=== PATIENT | female | born 1975 | race Caucasian/White ===

== ENCOUNTER → 2018-08-15 | Outpatient (REF) | payer OTHER, SELFPAY ==
--- NOTE | 2018-08-15 17:03 | REP ---
BILATERAL MAMMOGRAM WITH DIAGNOSTIC MAMMOGRAM LEFT BREAST AND LEFT BREAST ULTRASOUND: HISTORY: Skin and nipple retraction left breast medially. MLO and CC views of both breasts are performed with 3D tomosynthesis. Moderate fibroglandular tissue is seen bilaterally. There is an area of architectural distortion with what appear to be two adjacent spiculated masses in the medial aspect of the left breast. There is associated retraction of the skin of the medial left breast and the nipple appears slightly retroverted. Real-time sonographic evaluation of the medical aspect of the left breast shows two adjacent irregular hypoechoic masses at the 8 to 9 o'clock position, 3-4 cm from the nipple. Both the views are taller than wide with distal shadowing. These measure 2.5 x 2.2 x 1.5 cm and 2.0 x 1.7 x 1.9 cm. These are highly suspicious. IMPRESSION: ACR 5- findings compatible with cancer. In the posterior medial left breast there is an area of architectural distortion approximately 5 x 2 cm with what appear to be two adjacent spiculated nodules on the tomographic images. This is confirmed by ultrasound. The two spiculated nodules by mammography have a similar appearance by ultrasound. Findings are compatible with cancer. Biopsy may be performed with ultrasound guidance, with postprocedural mammography to confirm clip placement. BIRADS 5: BI-RADS/ACR category 5 mammogram. Highly Suggestive of Malignancy - appropriate action should be taken. This mammogram was interpreted with the aid of an FDA-approved computer-aided detection system. The patient states she had a clinical breast exam in 07/2018. The patient letter being requested is M4. Electronically Signed by Keshawn Leo MD 08/16/2018 11:41 A
== END ==
LOC: M RAD 11:35 → EDSTATUS 13:00
PROVIDERS: ATTEND Nurse Practitioner Family
DX: N64.53 Retraction of nipple (principal); N63.20 Unspecified lump in the left breast, unspecified quadrant

== ENCOUNTER → 2018-10-30 | Outpatient (REF) | payer MEDICAID, OTHER ==
[~2018-10-30] MED LIST: ADVI100T PO; BUPIVACAINE HCL 0.5% 10 ML VIAL As Ordered ONE; CALCTAB7 PO; CYMB60CA3 PO; D 101000 PO; DULO1CAP4 PO; GABA-1171 PO; LIDOCAINE 2% MDV 20 ML VIAL As Ordered ONE; MIDAZOLAM INJ 2 MG/2 ML VIAL (J2250) As Ordered ONE; MORP-69 PO; NEUR300C PO; OXYC-517 PO; PREG50CA PO; SENN1TAB8 PO; TAMO20TA8 PO; VENL37.598 PO; VENL75CA47 PO; XANA0.25 PO; XARE10TA PO; ceFAZolin 1GM INJ (J0690 PER 500MG) As Ordered ONE; fentaNYL 100 MCG/2 ML INJECTION (J3010) As Ordered ONE
--- NOTE | 2018-10-31 11:51 | ROOPDOC ---
[facility] Report Of Operation Report of Operation DATE OF PROCEDURE: 10/30/2018 PREOPERATIVE DIAGNOSIS: Breast cancer requiring access for chemotherapy. POSTOPERATIVE DIAGNOSIS: Breast cancer requiring access for chemotherapy. PROCEDURE: Ultrasound guided right internal jugular vein cannulation. Fluoroscopic guided right internal jugular vein tunneled central venous catheter with subcutaneous port placement with placement of a power injectable [employer] [place] Power Port with 23 centimeter length catheter. SURGEON: Dr. Camila Tabares M.D. SOURCING ASSISTANT: Louisa Holden ANESTHESIA: Local with 30 mL of 2% lidocaine mixed with 0.5% Marcaine. ANTIBIOTICS: Ancef 2 g FLUOROSCOPY TIME: 0.1 minutes. CONTRAST: None. ESTIMATED BLOOD LOSS: 15 mL. IV FLUID: 100 mL. COMPLICATIONS: None. DRAINS: None. SPECIMENS: None. IMPLANTS: Right internal jugular vein tunneled central venous catheter with subcutaneous port placement using a [employer] [place] Power Port which is power injectable. INDICATION: Patient is a 43-year-old female with breast cancer who has undergone bilateral mastectomy and who requires central venous access for chemotherapy instillation. Patient will undergo a right tunneled central venous catheter placement with subcutaneous port. Procedure was described and explained to the patient in detail including drawing of pictures showing the procedure and anatomy associated with insertion of the tunneled central venous catheter was subcutaneous port. Risks, benefits, and alternative treatment options were discussed with the patient. Alternative treatment options included, but were not limited to, no intervention. Benefits included, but were not limited to, access for chemotherapy infusion centrally, avoiding recurrent venous cannulations , IV placements and sclerosis of peripheral veins. Risks included, but were not limited to, infection, bleeding, pneumothorax, hemothorax, possible need for further open surgical intervention, renal failure requiring hemodialysis, failure of the tunneled central venous catheter with subcutaneous port to function requiring evaluation, revision and/or replacement, adverse and/or allergic reaction to the sedation medications and/or local anesthetics, anesthetic and sedation complication, possible need for transfusion of blood products, allergic reaction and/or complication from the prepping and draping materials, bruising, scarring, cerebrovascular accident, myocardial infarction, pulmonary embolus, deep venous thrombosis, poor satisfaction, poor results, poor outcome, loss of limb and loss of life. Risks of not performing the port insertion included but were not limited to inability to gain access for chemotherapy, inability to gain access for blood draws and laboratory evaluation, sclerosis and thrombophlebitis of peripheral veins and pain associated with continued peripheral cannulations. Patient's questions were answered. Patient voices understanding of these risks, benefits, and alternative treatment options. Patient voices acceptance of the risks associated with placement of a central venous tunneled catheter with subcutaneous port placement and consents to proceed with tunneled central venous catheter with subcutaneous port placement. No guarantees or promises were made to the pa tient regarding the results or outcome of the procedure. DESCRIPTION OF PROCEDURE: Patient was taken to the angiography suite, placed supine on the angiography room table, and prepped and draped in a standard surgical fashion. A time-out was conducted by myself and the team members involved in the procedure, confirming the correct procedure, patient, and laterality. Ultrasound was then used to evaluate the right internal jugular vein, which was noted to be easily compressible, widely patent, and free of thrombus. Ultrasound was then used to guide cannulation of the right internal jugular vein with a micropuncture needle with real-time concurrent visualization of the entry of the needle into the right internal jugular vein with a hardcopy image preserved. The skin overlying the right internal jugular vein was anesthetized with 2% lidocaine prior to cannulation. Once the right internal jugular vein was cannulated, the micropuncture wire was advanced through the micropuncture needle, which was up-sized to a micropuncture sheath. A J wire was advanced through the micropuncture sheath. The right internal jugular vein was then dilated under fluoroscopic guidance, and a #8-Honduran introducer sheath was positioned through the right internal jugular vein into the superior vena cava. The wire was removed, and the #8-Honduran single lumen catheter, which had been tunneled from a puncture wound in the right chest and brought out at the puncture wound at the right internal jugular vein entry site, was advanced through the introducer sheath under fluoroscopic guidance. The introducer sheath was then removed, and the catheter was positioned with the tip in the superior vena cava/right atrial junction under fluoroscopic guidance. The catheter was cut to a length of 23 cm and attached to the port. A pocket was created in the right chest after anesthetizing the overlying tissue with 2% lidocaine. The port was placed in the pocket and cannulated using an access needle. The port was noted to aspirate and flush easily and then was flushed with heparinized saline. The incision in the chest was closed using # 4-0 Monocryl suture in inverted interrupted fashion. The puncture wound in the right neck was closed using a #4-0 Monocryl in inverted interrupted fashion. Steri-Strips and dressings were applied. Patient tolerated the procedure well. All instrument, sponge, and needle counts were correct at the end of the case. There were no complications. Dr. Tabares was present for and directed the entire case. Patient was transferred to the recovery area and subsequently discharged in stable condition. The tunneled central venous catheter with subcutaneous port is stable for use for access. RADIOLOGIC SUPERVISION AND INTERPRETATION: The ultrasound showed the right internal jugular vein to be easily compressible, widely patent, and free of thrombus. Ultrasound was used to guide cannulation of the right internal jugular vein with real-time concurrent visualization of the entry of the needle into the right internal jugular vein. The right internal jugular vein was then dilated under fluoroscopic guidance with a #8-Honduran introducer sheath placed under fluoroscopic guidance. The 8 [place] single lumen catheter was advanced through the introducer sheath positioned with the tip in the superior vena/right atrial junction using fluoroscopic guidance with final fluoroscopic image showing the catheter and port to be in good position and good alignment with the tip in the superior vena cava/right atrial junction with no pneumo- or hemothorax noted. The tunneled central venous catheter with subcutaneous port is stable for use. Delvis Tabares MD Oct 31, 2018 11:51
== END ==
LOC: M IRPRO 10:41 → EDSTATUS 12:00
PROVIDERS: ATTEND Internal Medicine Hematology & Oncology
DX: C50.919 Malignant neoplasm of unspecified site of unspecified female breast (principal)
CPT/HCPCS: 36561; 76937; 77001; C1788; C1894; J0690

== ENCOUNTER → 2018-11-06 | Outpatient (REF) | payer MEDICAID, OTHER ==
[~2018-11-06] MED LIST changes: -BUPIVACAINE HCL 0.5% 10 ML VIAL As Ordered ONE; +ISOVUE-300 61% 50ML VIAL (Q9967) As Ordered ONE; -LIDOCAINE 2% MDV 20 ML VIAL As Ordered ONE; -MIDAZOLAM INJ 2 MG/2 ML VIAL (J2250) As Ordered ONE; -ceFAZolin 1GM INJ (J0690 PER 500MG) As Ordered ONE; -fentaNYL 100 MCG/2 ML INJECTION (J3010) As Ordered ONE
--- NOTE | 2018-11-06 11:21 | ROOPDOC ---
Delvis Tabares MD Nov 06, 2018 11:21
--- NOTE | 2018-11-28 08:38 | REPIR ---
DATE OF PROCEDURE: 11/06/2018 ATTENDING SURGEON: Dr. Nakia Tabares ASSISTANTS: Louisa Holden and Kirstie Pichardo. PREOPERATIVE DIAGNOSIS: Breast cancer, right neck lump. POSTOPERATIVE DIAGNOSIS: Breast cancer, right neck lump. PROCEDURE: Right internal jugular vein tunneled central venous catheter with subcutaneous port catheter flow study. DESCRIPTION OF PROCEDURE: The patient was taken to the angiography suite, placed on the angiography room table, and then prepped and draped in a standard surgical fashion. The port was cannulated and a catheter flow study was performed showing no extravasation or abnormality noted. The port was decannulated and a dressing was applied. The patient tolerated the procedure well. All instrument, sponge, and needle counts were correct at the end the culture and sensitivity. There were no complications. Dr. Tabares was present for and directed the entire case. The patient was transferred to the holding area and subsequently discharged in stable condition.
== END ==
LOC: M IRPRO 06:54 → EDSTATUS 07:30
PROVIDERS: ATTEND Surgery Vascular Surgery
DX: C50.919 Malignant neoplasm of unspecified site of unspecified female breast (principal); R22.1 Localized swelling, mass and lump, neck; Z45.2 Encounter for adjustment and management of vascular access device
CPT/HCPCS: 36598; Q9967

== ENCOUNTER 2018-11-14 09:53 | Outpatient (RCR) | payer MEDICAID, OTHER ==
[~2018-11-14 09:53] MED LIST changes: -CALCTAB7 PO; -CYMB60CA3 PO; -D 101000 PO; -GABA-1171 PO; -MORP-69 PO; -OXYC-517 PO; -PREG50CA PO; -SENN1TAB8 PO; -TAMO20TA8 PO; -VENL37.598 PO; -VENL75CA47 PO; -XANA0.25 PO; -XARE10TA PO
[2018-11-21] MEDS ORDERED: DULO1CAP4 PO (10:36)
[2018-11-21] MEDS ORDERED: NEUR300C PO (10:37)
[2018-11-21] MEDS ORDERED: MORP-69 PO (10:38)
[2018-11-21] MEDS ORDERED: OXYC-517 PO (10:40)
[2018-11-21] MEDS ORDERED: PREG50CA PO (10:40)
[2018-11-21] MEDS ORDERED: TAMO20TA8 PO (11:10)
[2019-03-04] MEDS ORDERED: XANA0.25 PO (16:54)
== END 2018-11-18 ==
LOC: M PT 09:53
PROVIDERS: ATTEND Internal Medicine Hematology & Oncology
DX: Z42.1 Encounter for breast reconstruction following mastectomy (principal)

== ENCOUNTER → 2018-11-14 | Outpatient (REF) | payer MEDICAID, OTHER ==
[~2018-11-14] MED LIST changes: -ISOVUE-300 61% 50ML VIAL (Q9967) As Ordered ONE
--- NOTE | 2018-11-15 11:27 | REP ---
PET/CT: HISTORY: Staging breast carcinoma. Status post left mastectomy and left axillary lymph node dissection. Invasive ductal carcinoma. COMPARISONS: Comparison mammography August 15 2018 and sonography August 15, 2018. TECHNIQUE: 60 minutes following the intravenous injection of a 8.48 mCi dose of F-18 FDG, three-dimensional PET scintigraphy is acquired from the skull base to the proximal thighs. Triplanar noncontrast CT scanning is acquired through the same anatomic range for attenuation correction, and image registration with scan parameters optimized to minimize radiation exposure to the patient. PET scintigraphy and CT datasets were fused and displayed on a workstation with multiplanar and projection display capability. PET/CT FINDINGS: The patient is status post bilateral mastectomy and tissue expanders placement bilaterally. There is a rounded focus of mildly hypermetabolic uptake in the left axilla with maximum standard uptake value 3.04. This may be a lymph node. There is some mildly hypermetabolic uptake posterior and lateral to the right augmentation implant with maximum standard uptake value 4.71. These may be related to postoperative inflammation. There is no abnormal pulmonary parenchymal hypermetabolic uptake. No mediastinal or hilar adenopathy is seen. No abnormal hypermetabolic uptake is seen within the abdomen. Unfortunately however, there is fairly widespread metastatic hypermetabolic uptake seen in the skeletal system. Hypermetabolic foci distributed throughout the skeletal system range from 2.74 to 9.17. The larger and more avid of these are associated with discernible areas of lytic bone destruction. The largest and most avid lesion is in the right femur intertrochanteric portion where maximum standard uptake value is 9.17. The lesion measures 4.4 cm in transverse dimension and there is a large area of posterior cortical destruction. There may be some risk of pathologic fracture in the right hip. The next largest lesion is in the left iliac bone where there are multifocal lesions. The more superior portion of the iliac bone has a largest area of mixed lytic and sclerotic involvement. Maximum standard uptake value in the superior acetabular region is 8.34. There is a lesion in the right pedicle at L3. There is a vertebral body lesion at T9. There is an early lesion in C2 and another in C3 in the cervical spine. No pathologic fracture is seen in the spine. No evidence of epidural involvement. There are other metastatic foci in the manubrium and sternum and in several ribs as well as the distal clavicle on the right. IMPRESSION: Fairly widespread skeletal metastatic hypermetabolic uptake. Possible left axillary timothy focus. Right axillary uptake suspected to be postoperative change. Electronically Signed by Anthony Taylor MD 11/15/2018 02:22 P
== END ==
LOC: M PLARAD 12:13 → EDSTATUS 13:00
PROVIDERS: ATTEND Internal Medicine Hematology & Oncology
DX: C50.812 Malignant neoplasm of overlapping sites of left female breast (principal)
CPT/HCPCS: 78815; A9552

== ENCOUNTER → 2018-12-06 | Outpatient (CLI) | payer MEDICAID ==
[~2018-12-06] MED LIST changes: +ISOVUE-370 76% 100ML VIAL (Q9967) As Ordered ONE; +MORP-38 PO; +OXYC-517 PO; +PREG50CA PO; +TAMO20TA8 PO
--- NOTE | 2018-12-06 14:12 | REP ---
CT right femur with IV contrast: History: History of breast carcinoma. Pain in the right femur question mets. Comparison is made with PET/CT study November 14, 2018. CT contrast dose: 100 mL of intravenous Isovue [address] findings: CT imaging confirms the presence of a fairly large area of posterior cortical destruction in the proximal femur on the right involving the intertrochanteric segment of the proximal femur. This radiolucent metastatic lesion measures 4.1 cm in right to left dimension by 3.4 cm anterior to posterior by 5.4 cm cranial to caudal. The anterior cortex is intact. There is a 3.8 cm segment of posterior cortex which is eroded. No pathologic fracture is seen. Given the size of the lesion however, there is certainly a risk of pathologic fracture with this focus. There is another smaller metastasis in the ischium on the right measuring 1.4 cm in diameter. There is a lesion in the right iliac bone measuring 1.4 cm in diameter as well. No distal femoral lesion is seen. No soft tissue mass is observed. No vascular abnormality. Impression: Lytic metastatic lesion in the intertrochanteric femur 4.1 x 5.4 x 3.4 cm in diameter with significant posterior cortical destruction. At risk lesion for pathologic fracture. There are other smaller right pelvic metastatic deposits. No other femoral metastasis is appreciated. Electronically Signed by Anthony Taylor MD 12/06/2018 07:22 P
== END ==
LOC: M RAD 08:42
PROVIDERS: ATTEND Internal Medicine Hematology & Oncology
DX: M79.604 Pain in right leg (principal); Z85.3 Personal history of malignant neoplasm of breast
CPT/HCPCS: 73701; Q9967

== ENCOUNTER → 2019-01-07 | Outpatient (REF) | payer MEDICAID ==
[~2019-01-07] MED LIST changes: -ISOVUE-370 76% 100ML VIAL (Q9967) As Ordered ONE; -MORP-38 PO; +MORP-69 PO
== END ==
LOC: M LAB LCGH 14:52
PROVIDERS: ATTEND Obstetrics & Gynecology
DX: N92.0 Excessive and frequent menstruation with regular cycle (principal)

== ENCOUNTER 2019-01-15 12:45 | Outpatient (RCR) | payer MEDICAID ==
[2019-01-18] MEDS ORDERED: D 101000 PO (10:58)
[2019-01-18] MEDS ORDERED: CYMB60CA3 PO (10:58)
[2019-01-18] MEDS ORDERED: GABA-1171 PO (10:58)
[2019-01-18] MEDS ORDERED: XARE10TA PO (10:58)
[2019-01-18] MEDS ORDERED: SENN1TAB8 PO (10:58)
[2019-01-18] MEDS ORDERED: CALCTAB7 PO (10:58)
== END 2019-01-19 ==
LOC: M PT 12:45
PROVIDERS: ATTEND Nurse Practitioner
DX: Z51.89 Encounter for other specified aftercare (principal); C79.51 Secondary malignant neoplasm of bone; C50.919 Malignant neoplasm of unspecified site of unspecified female breast; Z98.890 Other specified postprocedural states

== ENCOUNTER → 2019-01-25 | Outpatient (CLI) | payer MEDICAID ==
[~2019-01-25] MED LIST changes: +CALCTAB7 PO; +CYMB60CA3 PO; +D 101000 PO; +GABA-1171 PO; +SENN1TAB8 PO; +XARE10TA PO
--- NOTE | 2019-01-27 09:11 | RADONC ---
RADIATION ONCOLOGY NEW PATIENT CONSULTATION DATE: 01/25/2019 CHART NUMBER: [id number] DIAGNOSIS: Left breast cancer. STAGE: IV (T2 pathologic N1aM1(bone metastasis). ICD-10 code: C79.51. ECOG PERFORMANCE STATUS: 0. HISTORY OF PRESENT ILLNESS: The patient is 43 years old and she has been relatively recently been diagnosis as having a left breast cancer. Initially it was thought that she might have two masses in the breast and they were located in the central portion of the breast and possibly in the subareolar area. For the breast cancer the lesions were biopsied and shown to be an infiltrating ductal carcinoma, ER positive DE positive, HER2/shari oncogene not overly expressed. The patient had been experiencing some pain in the right hip and upon workup it was found that she did have multiple metastasis in the pelvis and a precarious metastasis in the proximal right femur with an impending fracture. The patient did undergo a mastectomy with lymph nodes retrieved. A total of 12 lymph nodes that were examined and one was positive for cancer, however, this was not the sentinel lymph node. The tumor was noted to be ER/DE positive, HER2/shari negative and the total maximum size of the breast tumor was 4.7 cm. Her mastectomy was on September 10, 2018. On 12/25/2018 the patient was noted to have an impending pathologic fracture involving the right proximal femur and she underwent a prophylactic stabilization with long gamma nail locked proximally and distally. Prior to the stabilization procedure she underwent an open biopsy with intraoperative frozen sections and indeed the right femur lesion was as anticipated a bone metastasis from her breast primary. The patient has been on tamoxifen to treat her breast cancer and she comes today for evaluation of prophylactic local regional radiotherapy to the right hip and femur to prevent progressive tumor growth in that extremity. PAST MEDICAL HEALTH: She has a history of cancer see history of present illness, low-back pain and a neuromuscular disorder. PAST SURGICAL HISTORY: She had bladder surgery in the past, she has had a bilateral mastectomy see history of present illness. She has had an open biopsy of the right proximal femur revealing the lesion to be consistent with bone metastasis from her breast primary. SOCIAL HISTORY: The patient has never been a smoker and has never used smokeless tobacco. Alcohol history denied. Drug use denied. FAMILY HISTORY OF CANCER: Her father had a history of cancer. Mother no known medical issues. CURRENT MEDICATIONS: Include: - gabapentin 300 mg one by mouth daily - ibuprofen 200-400 mg by mouth three times a day as needed - morphine sulfate 15 mg continuous release twice a day - oxycodone 5 mg by mouth as needed - Lyrica 5 mg by mouth ALLERGIES: No known drug allergies. IMAGING STUDY: Her PET scan was obtained on 11/14/2018 at [facility] and revealed widespread skeletal metastasis with hypermetabolic uptake. She had increased uptake at T9, C2, C3, the right hip, left iliac bone, and of course as stated the proximal right femur. This femur was stabilized as mentioned in the H P and the patient has done well since stabilization. REVIEW OF SYSTEMS: Respiratory: Denies coughing, dyspnea, hemoptysis, hiccups, pleuritic chest pains or wheezing. Psychiatric: Denies delusions, hallucinations, mood swings including depression or euphoria. Neurologic: Denies disorientation, dizziness, gait issues, headaches, insomnia, memory loss, neuropathy, motor dysfunction, paralysis, seizure activity, sensory deficits or stroke. Musculoskeletal: Denies arthritis. She does have pain in her right hip area and in the right femur area which she rates at a 3 to 4, but it is well controlled with her MS Contin and oxycodone for breakthrough pain. She denies significant muscle weakness and she has undergone the appropriate physical therapy. Integumentary: Denies alopecia, blisters, bruising, dry skin, facial burning, nail issues, photosensitivity, pruritus, rashes, urticaria. Hematology lymphatics: Denies easy bruising or lymphadenopathy. Genitourinary: Denies dysuria, frequency, genital masses, hematuria, incontinence, nocturia, renal stone disease, sexual dysfunction, urgency, urine color changes, vaginal discharge or bleeding or vaginal spotting. Gastrointestinal: Denies changes in bowel habits, constipation, diarrhea, heartburn, dyspepsia, hematemesis, hematochezia, hemorrhoids, juan pablo, GI bleeding, nausea, pain, cramping early satiety or vomiting. ENMT: Denies ear pain, epistaxis, esophagitis, hearing issues, dry mouth, oral bleeding otitis, sinusitis, sputum production, stomatitis, taste alterations, or tinnitus. CONSTITUTIONAL: Denies decrease in her appetite. She does note fatigue. Denies fever. She does have some lethargy but denies malaise, night sweats, rigors or recent weight changes. CARDIOVASCULAR: Denies arrhythmia, chest pain, dyspnea, edema, orthopnea, palpitations. BREASTS: She has had a bilateral mastectomy with expanders placed. There is no evidence of local regional recurrence and she has had no significant pain in the chest area. Vitals: Height 69 inches, weight 220.4 pounds, temperature 99, pulse 91, respirations 18, systolic 132, diastolic 95, O2 saturation 98% on room air. HEENT: Normocephalic. EOMs intact. PERRLA. Fundi benign. Lymphatics: No palpable peripheral lymphadenopathy is appreciated. Breasts: Bilateral mastectomy with no evidence of chest wall recurrence. Heart: Regular without murmurs. Lungs: Clear to auscultation and percussion. Abdomen: Without evidence of hepatomegaly, masses, deep abdominal tenderness. Extremities: Without cyanosis, clubbing or significant edema. The patient has a brace on her leg and has had the surgical procedure involving her right femur as stated in the a history of the present illness. There is no significant swelling. Neurologic: Examination grossly physiologic and nonfocal. IMPRESSION: Primary breast cancer stage T2, pathologic N1aM1 (bone metastasis). She has evidence of a fairly large proximal right femur lytic metastasis which has been biopsied and underwent prophylactic femoral stabilization with long gamma nail locked proximally and distally. PLAN OF RADIOTHERAPY: The patient is a candidate for palliative local regional radiotherapy. She will receive 10 fractions utilizing an appropriate MV photon beam. Prior to treatment delivery localization will be accomplished upon our CT simulator and treatment portals will be defined by the use of multiple leaf collimators. The indications, possible side effects of radiotherapy have been explained to the patient in detail. She understands and is willing to proceed as outlined. Thank you for referring this very chelsea lady to us and allowing us the opportunity of participation in her overall management. cc: MD Mena Herron MD Jessica Robinson, KELSEY
== END ==
LOC: M ONCR 10:35
PROVIDERS: ATTEND Radiology Radiation Oncology
DX: C50.012 Malignant neoplasm of nipple and areola, left female breast (principal); C79.51 Secondary malignant neoplasm of bone

== ENCOUNTER → 2019-01-31 | Outpatient (CLI) | payer MEDICAID ==
[~2019-01-31] MED LIST changes: +GASTROGRAFIN SOLUTION 30ML (Q9963) As Ordered ONE; +ISOVUE-370 76% 100ML VIAL (Q9967) As Ordered ONE
--- NOTE | 2019-01-31 14:15 | REP ---
CT CHEST WITH IV CONTRAST: HISTORY: Restaging, breast carcinoma. COMPARISON: PET-CT study, November 14, 2018. CT CONTRAST DOSE: 100 mL of intravenous Isovue-370. CT FINDINGS: Preliminary digital manager hospitality radiograph demonstrates a right-sided Ekwesl-B-Ehcf catheter. There is no evidence of pulmonary nodule or mass lesion. No pleural or pericardial effusion is appreciated. The tissue expanders noted in place on November 14, 2018 have been removed. There are post mastectomy changes bilaterally. No chest wall mass or axillary adenopathy is appreciated. There is irregular sclerosis in the right side of the manubrium at the site of the known skeletal metastasis in the manubrium. This does not appear different than on the November 14, 2018 study. There is callus formation indicating healing fracture involving the anterolateral left 6th and anterior left 3rd ribs. Questionable sclerosis is seen in the anterior left 2nd rib. A 7 mm radiolucent lesion in the right side of the T9 vertebral body. This corresponds with a recent PET activity. No other skeletal abnormalities are seen. IMPRESSION: Bilateral post mastectomy changes. Evidence of skeletal metastatic disease, as above. These are stable or less conspicuous than at the time of the PET-CT study November 14, 2018. Electronically Signed by Anthony Taylor MD 01/31/2019 03:14 P
--- NOTE | 2019-01-31 14:19 | REP ---
CT ABDOMEN AND PELVIS WITH IV AND ORAL CONTRAST: HISTORY: Restaging breast carcinoma. COMPARISON: PET-CT study, November 14, 2018. CT CONTRAST DOSE: 100 mL of intravenous Isovue-[address] FINDINGS: There is diffuse fatty infiltration of the liver. There is a focal area of increased attenuation centrally in the left lobe of the liver measuring 3.3 cm in diameter. This is of uncertain significance. No abnormal uptake is seen on PET-CT, and no lesion is visible on the noncontrast CT study from October 2018. There are areas of fat sparing adjacent to the gallbladder, and this area of increased density in the left lobe could be regional fat sparing. It is difficult to exclude an enhancing metastatic deposit. The adrenals are unchanged. No abnormalities noted in the pancreas or spleen. The gallbladder is unremarkable. The kidneys enhance symmetrically. No retroperitoneal mass is seen. There is no evidence of upper abdominal ascites or pelvic ascites. No uterine or ovarian abnormality is observed. No pelvic adenopathy is seen. The patient is status post IM kinga and femoral neck pinning for the lytic destructive metastasis in the intertrochanteric right femur. There is a 1 cm lytic lesion in the left acetabulum, unchanged. This showed hypermetabolic uptake. There is a second smaller subcentimeter lucency in the iliac bone, unchanged. Mottled lucent and sclerotic changes are noted in the posterior iliac bone on the left, unchanged. There is a tiny lucency in the left side of the first sacral segment. There is a radiolucency more laterally in the right iliac bone, unchanged. Right pedicle L3 lesion is unchanged in size. No new large metastasis is seen in the skeletal system. IMPRESSION: Multifocal skeletal metastatic disease either unchanged or improved in appearance. No new skeletal lesions seen. Fatty infiltration of the liver noted. There is a rounded shape irregular 3.3 cm area of increased attenuation in the left lobe of the liver which could be metastasis versus regional fat sparing. MRI scanning of the liver may be helpful. Electronically Signed by Anthony Taylor MD 01/31/2019 03:14 P
--- NOTE | 2019-01-31 14:51 | REP ---
WHOLE BODY BONE SCAN: Following the intravenous administration of 22 mCi of technetium 99m MDP, patient's whole body is imaged in multiple projections. There are no prior studies for comparison. Multiple foci of increased uptake are seen throughout the spine, pelvic bones, ribs, skull, and shoulder regions in a pattern most compatible with multiple skeletal metastases. A few of the left anterior rib foci represent advanced healing of rib fractures as seen on CT of the chest performed today. There is intense increased uptake in the right manubrium and proximal right femur, consistent with metastatic lesions. There is also a small focus of increased uptake at the left sternoclavicular region. There is a small focus of increased uptake in the proximal left femur. Renal and bladder activity are seen. IMPRESSION: Multiple foci of increased uptake in the axial and appendicular skeleton compatible with fairly widespread skeletal metastases. Electronically Signed by Keshawn Leo MD 01/31/2019 05:01 P
== END ==
LOC: M RAD 10:13
PROVIDERS: ATTEND Internal Medicine Hematology & Oncology
DX: C50.919 Malignant neoplasm of unspecified site of unspecified female breast (principal); C79.51 Secondary malignant neoplasm of bone; K76.0 Fatty (change of) liver, not elsewhere classified; Z90.13 Acquired absence of bilateral breasts and nipples
CPT/HCPCS: 71260; 74177; 78306; A9503; Q9963; Q9967

== ENCOUNTER 2019-02-05 12:45 | Outpatient (RCR) | payer MEDICAID ==
[~2019-02-05 12:45] MED LIST changes: -GASTROGRAFIN SOLUTION 30ML (Q9963) As Ordered ONE; -ISOVUE-370 76% 100ML VIAL (Q9967) As Ordered ONE
[2019-02-18] MEDS ORDERED: VENL37.598 PO ×2 (11:20→11:25)
[2019-02-18] MEDS ORDERED: VENL75CA47 PO (11:25)
== END 2019-02-18 ==
LOC: M PT 12:45
PROVIDERS: ATTEND Nurse Practitioner
DX: Z51.89 Encounter for other specified aftercare (principal); Z98.890 Other specified postprocedural states; M89.9 Disorder of bone, unspecified

== ENCOUNTER → 2019-02-18 | Outpatient (RCR) | payer MEDICAID ==
--- NOTE | 2019-01-30 08:39 | RADONC ---
RADIATION ONCOLOGY SIMULATION NOTE DATE OF SERVICE: 01/29/2019 CHART NUMBER: [id number] DIAGNOSIS: Breast cancer metastatic to right proximal femur status post surgical fixation. SIMULATION NOTE: The patient was simulated to treat with radiotherapy to the area where a fairly large lytic lesion in the right proximal femur was stabilized after being biopsied by Dr. Waite. The patient was first placed in a supine position with her feet first through the simulator. An immobilization device was constructed to secure the patient in the same position each day of treatment. After the fabrication of the immobilization device, 3 mm interval images were captured via the CT simulator. These were will be used for contouring the right femur as per protocol. The entire procedure went well with no untoward side effects. These images now will be contoured appropriately for treatment planning. A total of 10 days are planned for the treatment. I was present during the entire procedure. LOREND
--- NOTE | 2019-02-13 07:39 | RADONC ---
RADIATION ONCOLOGY PROGRESS NOTE DATE: 02/11/2019 CHART #: [id number] Ms. Warren is presently at a dose of 1500 cGy to her right femur and is tolerating treatments quite well at this point with no complaints related to her radiation therapy. REVIEW OF SYSTEMS: The patient's review of systems is positive for some left-sided rib pain. She is asking if we could treat the left-sided ribs. She has no complaints related to her leg. The patient's review of systems is positive for the rib pain as well as some other bone pain, but is otherwise noncontributory. Denies nausea, vomiting, fevers, chills, night sweats, diplopia, headaches, anxiety or depression, anorexia, weight loss, visual disturbances, chest pain, urinary or bowel difficulties, bone pain, or neurological problems. PHYSICAL EXAMINATION: The patient's skin is in good condition with no evidence of radiation change present. There is no moist or dry desquamation. The remainder of her physical exam remains unchanged. Ms. Warren is tolerating treatments quite well and radiation will continue as scheduled. I did talk with the patient about the possibility of palliative radiation therapy to those ribs. We discussed logistics of treatment planning and rib treatments. We can treat the patient to some painful ribs. I did look at the patient's bone scan which does show some uptake there. After the patient left, after I further reviewed the situation, the CT scan does show what looked to be healing fractures of her left ribs. Further questioning of my staff reveals that the patient had told them that the ribs were broken during the time of her surgery. I am sure that there is some metastatic disease involving some of the ribs, but I am not quite sure what components of these fractures is pathologic at this point. Before we actually start treatment of those ribs, I will have a further discussion with this patient and her . Since these rib fractures are healing and even normal rib fractures are quite painful, it may be best to watch these for now and save radiation until absolutely necessary. In the meantime, the leg radiation will continue as scheduled.
[~2019-02-18] MED LIST changes: +VENL37.598 PO; +VENL75CA47 PO
--- NOTE | 2019-02-19 07:13 | RADONC ---
RADIATION ONCOLOGY TREATMENT SUMMARY DATE: 02/18/2019 CHART NUMBER: [id number] DIAGNOSIS: Left breast cancer. STAGE: IV, metastatic. ECOG PERFORMANCE STATUS: 0 TREATMENT SUMMARY: Ms. Duran is a 43-year-old white female with the diagnosis of metastatic left breast cancer who presented to us for consideration of palliative radiation therapy to her right femur. We treated the patient to her right femur for a total dose of 3000 cGy delivered in 10 fractions of 300 cGy each over 13 elapsed days from 02/05/2019 through 02/18/2019. The patient's right femur was treated on the linear accelerator utilizing 3D conformal technique with a 10 MV photon beam. Ms. Duran tolerated her treatments quite well and was able complete therapy as prescribed. I have scheduled the patient to see me again in 1 month for further followup. She will also continue to be followed by her other physicians as well. cc: MD Mena Herron MD Jessica Robinson, KELSEY
== END ==
LOC: M ONCR 01-29 13:38
PROVIDERS: ATTEND Radiology Radiation Oncology
DX: C79.51 Secondary malignant neoplasm of bone (principal)

== ENCOUNTER → 2019-02-22 | Outpatient (CLI) | payer MEDICAID ==
[~2019-02-22] MED LIST changes: +PROHANCE 279.3MG/ML 15ML VIAL (A9576) As Ordered ONE; +PROHANCE 279.3MG/ML 5ML VIAL (A9576) As Ordered ONE; +XANA0.25 PO
--- NOTE | 2019-02-22 15:22 | REP ---
MRI LIVER WITH AND WITHOUT CONTRAST: HISTORY: Breast cancer. COMPARISON: CT 01/31/2019. TECHNIQUE: Multiple sequences obtained in the axial, and coronal planes, prior to and following the intravenous administration of 20 mL ProHance. In the left lobe of the liver there is again noted an area of abnormal signal intensity which has a mass like appearance. This measures approximately 3 cm in diameter. It is predominantly hyperintense on T2 fat sat images with mixed low and high signal on T1 fat sat images. Remainder of the liver parenchyma demonstrates diffuse drop in signal on [id number] images compatible with diffuse fatty infiltration. There are spared areas of parenchyma in the periportal region and adjacent to the gallbladder. Following the intravenous administration of gadolinium the lesion in the left lobe demonstrates heterogeneous arterial phase enhancement with initially nonenhancing central serpiginous areas which demonstrate delayed enhancement. The lesion demonstrates a persistent blush on delayed imaging. No other liver mass is seen. The spleen is unremarkable. A nodule in the left adrenal gland demonstrates a drop in signal in [id number] images consistent with an adrenal adenoma, measuring 1.1 cm in diameter. Right adrenal is unremarkable. Pancreas and kidneys are unremarkable. No adenopathy is seen in the abdomen and there is no evidence of free fluid. There are enhancing lesions in visualized vertebral bodies consistent with metastases. IMPRESSION: Diffuse fatty infiltration of the liver. There is a enhancing lesion in the left lobe of the liver which cannot be definitely characterized. Given the patient's history of metastatic breast cancer a metastatic lesion is a primary diagnostic possibility. Ultrasound guided biopsy could be performed if clinically warranted. Alternatively this could represent focal nodular hyperplasia given the presence of a possible central scar which demonstrates delayed enhancement. Atypical hemangioma would be less likely. Left adrenal adenoma. There are enhancing metastatic lesions in the visualized vertebral bodies. Electronically Signed by Keshawn Leo MD 02/25/2019 04:59 P
== END ==
LOC: M RAD 07:58
PROVIDERS: ATTEND Internal Medicine Hematology & Oncology
DX: R91.1 Solitary pulmonary nodule (principal)
CPT/HCPCS: 74183; A9576

== ENCOUNTER 2019-03-11 12:24 | Emergency (ER) | payer MEDICAID ==
[~2019-03-11 12:24] MED LIST changes: -LIDOCAINE 1% MDV 20ML VIAL As Ordered ONE
[2019-03-11] MEDS ORDERED: LORazepam 2 MG/ML VIAL (J2060) IV STA ×2 (12:30→12:49)
[2019-03-11] MEDS ORDERED: MORPHINE 4 MG/ML 1ML VIAL/SYRINGE (J2270) IV ONE (12:30)
[2019-03-11] MEDS ORDERED: NS 1,000 ML IV SCH (12:30)
[2019-03-11] MEDS ORDERED: HYDROMORPHONE HCL 0.5 MG/ 0.5 ML SYRINGE (J1170 PER 1) As Ordered ONE (12:51)
[2019-03-11] MEDS ORDERED: HYDROmorphone 2 MG TAB PO ONE (13:00)
[2019-03-11 13:02] LABS: HEMATOCRIT 38.6 % (36.0-47.0); HEMOGLOBIN 13.7 g/dl (12.0-15.5); MEAN CORPUSCULAR HEMOGLOBIN 31.4 pg (27.0-33.0); MEAN CORPUSCULAR HGB CONC 35.5 g/dl (32.0-36.5); MEAN CORPUSCULAR VOLUME 88.3 fl (80.0-96.0); PLATELET COUNT, AUTOMATED 281 10^3/uL (150-450); RED BLOOD COUNT 4.37 10^6/uL (4.00-5.40); WHITE BLOOD COUNT 9.5 10^3/uL (4.0-10.0)
[2019-03-11 13:21] LABS: BLOOD UREA NITROGEN 14 MG/DL (7-18); CALCIUM LEVEL 8.8 MG/DL (8.5-10.1); CARBON DIOXIDE LEVEL 24 MEQ/L (21-32); CHLORIDE LEVEL 105 MEQ/L (98-107); CK-MB VALUE MASS < 1.0 NG/ML (<3.6); CPK CREATINE PHOSPHOKINASE 63 U/L (26-192); CREATININE FOR GFR 0.76 MG/DL (0.55-1.30); GLOMERULAR FILTRATION RATE > 60.0 (>58); GLUCOSE, FASTING 168 MG/DL (70-100); MB/CK RELATIVE INDEX 1.59 (< OR =4); POTASSIUM SERUM 3.6 MEQ/L (3.5-5.1); SODIUM LEVEL 139 MEQ/L (136-145); TROPONIN I < 0.02 NG/ML (< 0.10)
--- NOTE | 2019-03-11 13:35 | REP ---
Two-view chest: March 11, 2019. Indication: Chest pain. New comparison: New none. Findings: Right-sided Port-A-Cath is present with the distal tip in the right heart. The lungs are clear. There is no pleural effusion or pneumothorax. Cardiac silhouette is at the upper limits of normal in size. Impression: Clear lungs. Electronically Signed by Shahab España DO 03/11/2019 01:26 P
[2019-03-11 14:14] VITALS: BP 131/85
[2019-03-12] MEDS ORDERED: SODIUM CHLORIDE 0.9% INJ 10 ML SYR IV SCH (09:00)
== END 2019-03-11 14:20 | disposition home or self-care (01) ==
LOC: M ED 12:24
DX: R10.9 Unspecified abdominal pain (principal); F43.0 Acute stress reaction; C50.919 Malignant neoplasm of unspecified site of unspecified female breast; Z95.9 Presence of cardiac and vascular implant and graft, unspecified; Z79.899 Other long term (current) drug therapy; Z79.810 Long term (current) use of selective estrogen receptor modulators (SERMs); Z79.891 Long term (current) use of opiate analgesic
CPT/HCPCS: 71046; 80048; 82550; 82553; 85027; 96374; 96375; 96376; 99284; J2060; J2270

== ENCOUNTER → 2019-03-11 | Outpatient (CLI) | payer MEDICAID ==
[~2019-03-11] MED LIST changes: +LIDOCAINE 1% MDV 20ML VIAL As Ordered ONE; -PROHANCE 279.3MG/ML 15ML VIAL (A9576) As Ordered ONE; -PROHANCE 279.3MG/ML 5ML VIAL (A9576) As Ordered ONE
[2019-03-11 12:15] VITALS: BP 169/89
--- NOTE | 2019-03-12 16:59 | REP ---
Ultrasound-guided liver biopsy This procedure was performed by [facility], under the direct supervision of Dr. Leo. The risks and benefits of the procedure were explained to the patient and informed consent was obtained both verbally and written. Directly prior to the start of the procedure, a formal timeout was done in the procedure room. The mass in the left lobe of the liver was localized using ultrasound guidance. The skin was prepped and draped in a sterile fashion. 13 ml of 1% lidocaine was used as a local anesthetic. Using ultrasound guidance a small skin sully was made and a 19/20 gauge coaxial needle biopsy system was inserted and advanced into the liver. 3 core biopsy samples were obtained and sent to the lab. The patient experience extreme amount of chest and abdominal pain after the 3rd biopsy. The coaxial needle was removed, and a postbiopsy scan was done that revealed no abnormalities. The patient was then taken to the emergency department for evaluation and pain management. Reviewed by LOIDA Meyers 03/11/2019 02:45 P Electronically Signed by Keshawn Leo MD 03/12/2019 04:50 P
== END ==
LOC: M IRPRO 10:22
PROVIDERS: ATTEND Internal Medicine Hematology & Oncology
DX: K76.0 Fatty (change of) liver, not elsewhere classified (principal)

== ENCOUNTER → 2019-04-03 | Outpatient (CLI) | payer MEDICAID ==
--- NOTE | 2019-04-04 06:52 | RADONC ---
RADIATION ONCOLOGY FOLLOWUP NOTE DATE: 04/03/2019 CHART NUMBER: [id number] DIAGNOSIS: Left breast cancer. STAGE: IV, pathologic fracture bone metastasis. ECOG PERFORMANCE STATUS: 0 FOLLOW-UP NOTE: Ms. Warren is a very pleasant 44-year-old white female with the diagnosis of metastatic breast cancer who is presenting to us today for routine followup visit 6 weeks post completion of palliative radiation therapy to her right femur. The patient presents today reporting that she is doing quite well with no complaints at this time related to her radiation therapy or disease. She reports that her femur pain is improved significantly and she is able to walk without assistance. REVIEW OF SYSTEMS: The patient's review of systems is positive for some continued femur discomfort, but is otherwise noncontributory. She denies nausea, vomiting, fevers, chills, night sweats, diplopia, headaches, anxiety or depression, anorexia, weight loss, visual disturbances, chest pain, urinary or bowel difficulties, bone pain, or neurological problems. PHYSICAL EXAMINATION: The patient is a well-developed, well-nourished white female in no acute distress. HEENT exam is normocephalic, atraumatic. Extraocular movements are intact. There is no palpable cervical, supraclavicular, infraclavicular, axillary, or inguinal lymphadenopathy present. Lungs are clear to auscultation and percussion. Heart has a regular rate and rhythm. Abdomen is benign with no hepatosplenomegaly, masses, or tenderness. Skeletal examination reveals no tenderness to pressure or percussion of the bony skeleton. Extremities reveal no clubbing, cyanosis, or edema. Neurologic exam is grossly intact, as is the remainder of the physical examination. ASSESSMENT: The patient is clinically stable at this point. She is scheduled to be seen at [facility] in [place] and will be transferring her medical oncology care to that center. In light of this, at her request, I am discharging her from my followup except on a p.r.n. basis. I did make clear to this patient that we are more than happy to treat her at anytime if she wishes. She did say that she enjoyed coming to our radiation center and if in the future she needs radiation she would want it to be done here. The patient has my cell phone number and office number. I made clear to her that if she has any questions or anything whatsoever, we are glad to see her at anytime. If she should have any new discomfort or a need for treatment we are also glad to see her at anytime as well. In addition, should her new oncologist at [place] believe she needs radiation for any reason whatsoever, I let her know that they can feel free and refer her back to us at anytime. cc: MD Mena Herron MD Jessica Robinson, KELSEY
== END ==
LOC: M ONCR 11:08
PROVIDERS: ATTEND Radiology Radiation Oncology
DX: C79.51 Secondary malignant neoplasm of bone (principal); C50.912 Malignant neoplasm of unspecified site of left female breast

== ENCOUNTER 2019-07-30 08:01 | Emergency (ER) | payer MEDICAID ==
[~2019-07-30] VITALS: Ht 175.3 cm; Wt 102.0 kg
[2019-07-30] MEDS ORDERED: METF500T13 (08:13)
[2019-07-30] MEDS ORDERED: OXYC10TA12 (08:13)
[2019-07-30] MEDS ORDERED: IBRA75CA PO (08:14)
[2019-07-30] MEDS ORDERED: VENL150C43 (08:14)
[2019-07-30] MEDS ORDERED: [UNRECOGNIZED DRUG - OTHER] (08:14)
[2019-07-30] MEDS ORDERED: LETR2.5T2 PO (08:14)
[2019-07-30] MEDS ORDERED: SODIUM CHLORIDE 0.9% INJ 10 ML SYR IV PRN (09:00)
[2019-07-30 10:04] LABS: BASO % 0.6 % (0.0-1.0); EOS # 0.1 10^3/uL (0.0-0.5); EOS % 1.9 % (0.0-3.0); HEMATOCRIT 36.3 % (36.0-47.0); HEMOGLOBIN 12.9 g/dl (12.0-15.5); LYMPH # 0.6 10^3/uL (1.5-5.0); LYMPH % 16.5 % (24.0-44.0); MEAN CORPUSCULAR HEMOGLOBIN 32.5 pg (27.0-33.0); MEAN CORPUSCULAR HGB CONC 35.5 g/dl (32.0-36.5); MEAN CORPUSCULAR VOLUME 91.4 fl (80.0-96.0); MONO # 0.2 10^3/uL (0.0-0.8); MONO % 6.1 % (0.0-5.0); NEUTROPHILS # 2.7 10^3/uL (1.5-8.5); NEUTROPHILS % 74.3 % (36.0-66.0); PLATELET COUNT, AUTOMATED 201 10^3/uL (150-450); RED BLOOD COUNT 3.97 10^6/uL (4.00-5.40); WHITE BLOOD COUNT 3.6 10^3/uL (4.0-10.0)
--- NOTE | 2019-07-30 10:23 | REP ---
Portable chest x-ray: Single view. History: Fever of unknown origin. Comparison study March 11, 2019. Findings: A right sided [id number] catheter seen in place with its tip in the expected location of the right atrium. EKG electrodes are seen. There are two surgical clips in the right breast soft tissues. There is a healing fracture of the left anterior 6th rib. There is a nodular density projecting over the anterior end of the left 3rd rib in the left perihilar region. A healing fracture of the left anterior 3rd rib is seen on CT study from January 31, 2019 as is the healing change at the 6th anterior rib. Impression: No active pulmonary disease. Healing left anterior 6th and 3rd rib fractures. Electronically Signed by Anthony Taylor MD 07/30/2019 12:54 P
[2019-07-30 10:35] LABS: BLOOD UREA NITROGEN 15 MG/DL (7-18); CALCIUM LEVEL 8.5 MG/DL (8.5-10.1); CARBON DIOXIDE LEVEL 27 MEQ/L (21-32); CHLORIDE LEVEL 104 MEQ/L (98-107); GLOMERULAR FILTRATION RATE > 60.0 (>58); GLUCOSE, FASTING 157 MG/DL (70-100); POTASSIUM SERUM 4.1 MEQ/L (3.5-5.1); SODIUM LEVEL 137 MEQ/L (136-145)
[2019-07-30] MEDS ORDERED: ACETAMINOPHEN TAB 650MG DOSE (2X325MG) PO ONE (11:15)
[2019-07-30] MEDS ORDERED: OSELTAMIVIR PHOSPHATE 75 MG CAP (TAMIFLU) PO ONE (12:15)
[2019-07-30] MEDS ORDERED: OSEL75CA PO (13:03)
[2019-07-30 13:56] VITALS: BP 126/82
== END 2019-07-30 14:02 | disposition home or self-care (01) ==
LOC: M ED 08:01
DX: J09.X2 Influenza due to identified novel influenza A virus with other respiratory manifestations (principal); C56.9 Malignant neoplasm of unspecified ovary; E11.9 Type 2 diabetes mellitus without complications; I10 Essential (primary) hypertension; R93.7 Abnormal findings on diagnostic imaging of other parts of musculoskeletal system; S22.42XD Multiple fractures of ribs, left side, subsequent encounter for fracture with routine healing; X58.XXXD Exposure to other specified factors, subsequent encounter; Y92.9 Unspecified place or not applicable; Y93.9 Activity, unspecified; Y99.9 Unspecified external cause status; Z95.828 Presence of other vascular implants and grafts; Z79.84 Long term (current) use of oral hypoglycemic drugs; Z79.899 Other long term (current) drug therapy
CPT/HCPCS: 71045; 80048; 83605; 85025; 87040; 87486; 87581; 87633; 87798; 87880; 99285; J1642

== ENCOUNTER → 2021-04-09 | Outpatient (REF) | payer MEDICARE, MEDICAID ==
[~2021-04-09] MED LIST changes: +CALC-211 PO; -CALCTAB7 PO; -CYMB60CA3 PO; +CYMB60CA4 PO; +IBRA75CA PO; +LETR2.5T2 PO; +METF500T13; +OSEL75CA PO; +OXYC10TA12; +SENN-80 PO; -SENN1TAB8 PO; +VENL150C43; +[UNRECOGNIZED DRUG - OTHER]
[2021-04-09 14:46] LABS: BASO # 0.1 10^3/uL (0.0-0.2); BASO % 1.5 % (0.0-1.0); EOS # 0.1 10^3/uL (0.0-0.5); EOS % 2.8 % (0.0-3.0); HEMATOCRIT 39.8 % (36.0-47.0); HEMOGLOBIN 14.6 g/dl (12.0-15.5); LYMPH # 1.8 10^3/uL (1.5-5.0); MEAN CORPUSCULAR VOLUME 98.3 fl (80.0-96.0); MONO # 0.5 10^3/uL (0.0-0.8); MONO % 11.6 % (2.0-8.0); NEUTROPHILS # 2.1 10^3/uL (1.5-8.5); NEUTROPHILS % 45.7 % (36.0-66.0); PLATELET COUNT, AUTOMATED 227 10^3/uL (150-450); RED BLOOD COUNT 4.05 10^6/uL (4.00-5.40); WHITE BLOOD COUNT 4.7 10^3/uL (4.0-10.0)
[2021-04-09 14:47] LABS: MEAN CORPUSCULAR HGB CONC 36.7 g/dl (32.0-36.5)
[2021-04-09 14:54] LABS: ALBUMIN 3.9 GM/DL (3.2-5.2); ALT/SGPT 30 U/L (12-78); BILIRUBIN,TOTAL 0.2 MG/DL (0.2-1.0); BLOOD UREA NITROGEN 11 MG/DL (7-18); CALCIUM LEVEL 8.9 MG/DL (8.5-10.1); CARBON DIOXIDE LEVEL 30 MEQ/L (21-32); CHLORIDE LEVEL 105 MEQ/L (98-107); CREATININE FOR GFR 0.88 MG/DL (0.55-1.30); GLOMERULAR FILTRATION RATE > 60.0 (>58); GLUCOSE, FASTING 150 MG/DL (70-100); POTASSIUM SERUM 3.7 MEQ/L (3.5-5.1); SODIUM LEVEL 141 MEQ/L (136-145); TOTAL PROTEIN 7.4 GM/DL (6.4-8.2)
[2021-04-09 16:08] LABS: CA15-3 ANTIGEN 38.6 U/ML (<32.4)
== END ==
LOC: M LAB REF 04-08 10:38
PROVIDERS: ATTEND Nurse Practitioner Adult Health
DX: C50.919 Malignant neoplasm of unspecified site of unspecified female breast (principal)

== ENCOUNTER 2022-01-28 23:51 | Emergency (ER) | payer MEDICARE, MEDICAID ==
[~2022-01-28] VITALS: Ht 175.3 cm; Wt 87.3 kg
[~2022-01-28 23:51] MED LIST changes: +ADDE10TA PO; +ADDE1TAB14 PO; +DEXT10TA2 PO; +FENT1DIS14; +OXYC10TA12 PO; +SEMA1PEN2; +SYMP0.2T2; +SYMP0.2T2 PO
[2022-01-29] MEDS ORDERED: MORPHINE 2 MG/ML 1ML VIAL IV ONE (04:30)
[2022-01-29] MEDS ORDERED: NS 1,000 ML IV ONE (04:30)
[2022-01-29 05:42] LABS: BASO % 0.2 % (0.0-1.0); HEMATOCRIT 39.3 % (36.0-47.0); HEMOGLOBIN 14.2 g/dl (12.0-15.5); LYMPH # 1.4 10^3/uL (1.5-5.0); LYMPH % 15.1 % (24.0-44.0); MEAN CORPUSCULAR HEMOGLOBIN 30.7 pg (27.0-33.0); MEAN CORPUSCULAR HGB CONC 36.1 g/dl (32.0-36.5); MEAN CORPUSCULAR VOLUME 84.9 fl (80.0-96.0); MONO # 0.5 10^3/uL (0.0-0.8); MONO % 5.1 % (2.0-8.0); NEUTROPHILS # 7.2 10^3/uL (1.5-8.5); NEUTROPHILS % 79.4 % (36.0-66.0); PLATELET COUNT, AUTOMATED 247 10^3/uL (150-450); RED BLOOD COUNT 4.63 10^6/uL (4.00-5.40)
[2022-01-29 06:22] LABS: ALBUMIN 3.7 GM/DL (3.2-5.2); ALT/SGPT 62 U/L (12-78); BILIRUBIN,TOTAL 0.3 MG/DL (0.2-1.0); BLOOD UREA NITROGEN 16 MG/DL (7-18); CALCIUM LEVEL 8.1 MG/DL (8.5-10.1); CARBON DIOXIDE LEVEL 25 MEQ/L (21-32); CHLORIDE LEVEL 106 MEQ/L (98-107); CREATININE FOR GFR 0.78 MG/DL (0.55-1.30); GLOMERULAR FILTRATION RATE > 60.0 (>58); GLUCOSE, FASTING 235 MG/DL (70-100); POTASSIUM SERUM 3.3 MEQ/L (3.5-5.1); SODIUM LEVEL 139 MEQ/L (136-145)
[2022-01-29] MEDS ORDERED: POTASSIUM CHLORIDE 10MEQ SR TABLET PO ONE (06:30)
[2022-01-29] MEDS ORDERED: PROM50TA4 PO (06:31)
[2022-01-29] MEDS ORDERED: oxyCODONE 5MG TAB PO ONE (07:50)
[2022-01-29 08:46] VITALS: BP 113/55
[2022-01-30] MEDS ORDERED: ONDA4TAB6 PO (07:19)
[2022-01-30] MEDS ORDERED: PROM50SU PR ×3 (09:45→11:12)
[2022-01-30] MEDS ORDERED: PROMETHAZINE (11:10)
[2022-01-30] MEDS ORDERED: DICY10CA13 PO (11:24)
[2022-01-30] MEDS ORDERED: OMEP1CAP73 PO (11:30)
== END 2022-01-29 08:58 | disposition home or self-care (01) ==
LOC: M ED 23:51
DX: K29.70 Gastritis, unspecified, without bleeding (principal); E11.9 Type 2 diabetes mellitus without complications; C50.912 Malignant neoplasm of unspecified site of left female breast; Z90.13 Acquired absence of bilateral breasts and nipples; Z98.890 Other specified postprocedural states; F32.A Depression, unspecified; Z79.899 Other long term (current) drug therapy
CPT/HCPCS: 80053; 85025; 87486; 87581; 87633; 87798; 96361; 96374; 99284; J1642; J2270

== ENCOUNTER 2022-01-30 06:10 | Emergency (ER) | payer MEDICARE, MEDICAID ==
[~2022-01-30] VITALS: Ht 172.7 cm; Wt 85.5 kg
[~2022-01-30 06:10] MED LIST changes: +PROM50TA4 PO
[2022-01-30] MEDS ORDERED: ONDA4TAB6 PO (07:19)
[2022-01-30] MEDS ORDERED: KETOROLAC 30 MG/ML 1ML VIAL IV ONE (07:35)
[2022-01-30] MEDS ORDERED: NS 1,000 ML IV ONE (07:35)
[2022-01-30] MEDS ORDERED: PROMETHAZINE 25MG/ML 1ML VIAL IV ONE (07:35)
[2022-01-30] MEDS ORDERED: SODIUM CHLORIDE 0.9% INJ 10 ML SYR IV PRN (07:35)
[2022-01-30] MEDS ORDERED: ISOVUE-370 76% 100ML VIAL As Ordered ONE (08:40)
[2022-01-30] MEDS ORDERED: PROM50SU PR ×3 (09:45→11:12)
[2022-01-30 09:53] VITALS: BP 159/90
[2022-01-30] MEDS ORDERED: PROMETHAZINE (11:10)
[2022-01-30] MEDS ORDERED: DICY10CA13 PO (11:24)
[2022-01-30] MEDS ORDERED: OMEP1CAP73 PO (11:30)
== END 2022-01-30 10:35 | disposition home or self-care (01) ==
LOC: M ED 06:10
DX: R10.9 Unspecified abdominal pain (principal); R11.2 Nausea with vomiting, unspecified; R93.2 Abnormal findings on diagnostic imaging of liver and biliary tract; R93.421 Abnormal radiologic findings on diagnostic imaging of right kidney; R93.7 Abnormal findings on diagnostic imaging of other parts of musculoskeletal system; K57.90 Diverticulosis of intestine, part unspecified, without perforation or abscess without bleeding; C50.919 Malignant neoplasm of unspecified site of unspecified female breast; C79.51 Secondary malignant neoplasm of bone; E11.9 Type 2 diabetes mellitus without complications; K29.70 Gastritis, unspecified, without bleeding; Z95.828 Presence of other vascular implants and grafts; Z90.10 Acquired absence of unspecified breast and nipple; Z79.899 Other long term (current) drug therapy
CPT/HCPCS: 74177; 96361; 96374; 96375; 99284; J1642; J1885; J2550; Q9967

== ENCOUNTER → 2022-05-12 | Outpatient (CLI) | payer MEDICARE, MEDICAID ==
[~2022-05-12] VITALS: Ht 180.3 cm; Wt 82.8 kg
[~2022-05-12] MED LIST changes: +ADDE20CA3 PO; +CAPE1TAB2 PO; +DICY10CA13 PO; +FENT12DI8 TOP; +FENT1DIS14 TD; +LOVE1INJ SC; +MORP15TA2 PO; +MORP30TASA PO; +OMEP1CAP73 PO; +ONDA4TAB6 PO; +PENT400T47 PO; +PROM50SU PR; +PROMETHAZINE; -SEMA1PEN2; +SEMA1PEN2 INJ; -VENL150C43; +VENL150C43 PO; +VITA-10 PO
[2022-05-12 08:05] VITALS: BP 132/95
== END ==
LOC: M PAL 07:59
PROVIDERS: ATTEND Nurse Practitioner Adult Health
DX: C50.912 Malignant neoplasm of unspecified site of left female breast (principal); C79.51 Secondary malignant neoplasm of bone; G89.3 Neoplasm related pain (acute) (chronic); E11.9 Type 2 diabetes mellitus without complications; D64.9 Anemia, unspecified; F43.20 Adjustment disorder, unspecified; K59.09 Other constipation; I26.99 Other pulmonary embolism without acute cor pulmonale; R53.83 Other fatigue; Z79.891 Long term (current) use of opiate analgesic; Z79.899 Other long term (current) drug therapy; Z92.21 Personal history of antineoplastic chemotherapy; Z87.891 Personal history of nicotine dependence; Z80.1 Family history of malignant neoplasm of trachea, bronchus and lung; Z51.5 Encounter for palliative care; Z80.6 Family history of leukemia; Z90.13 Acquired absence of bilateral breasts and nipples; Z80.3 Family history of malignant neoplasm of breast; Z80.7 Family history of other malignant neoplasms of lymphoid, hematopoietic and related tissues

== ENCOUNTER → 2022-05-26 | Outpatient (CLI) | payer MEDICARE, MEDICAID | LOC: M PAL 09:31 | PROVIDERS: ATTEND Nurse Practitioner Adult Health | DX: Z53.9 Procedure and treatment not carried out, unspecified reason (principal) ==

== ENCOUNTER → 2022-06-21 | Outpatient (CLI) | payer MEDICARE, MEDICAID ==
[~2022-06-21] VITALS: Ht 177.8 cm; Wt 81.1 kg
[2022-06-21 08:05] VITALS: BP 118/82
== END ==
LOC: M PAL 08:01
PROVIDERS: ATTEND Nurse Practitioner Adult Health
DX: C50.912 Malignant neoplasm of unspecified site of left female breast (principal); C79.51 Secondary malignant neoplasm of bone; G89.3 Neoplasm related pain (acute) (chronic); G56.90 Unspecified mononeuropathy of unspecified upper limb; Z51.5 Encounter for palliative care; E11.9 Type 2 diabetes mellitus without complications; K59.00 Constipation, unspecified; D64.9 Anemia, unspecified; F43.20 Adjustment disorder, unspecified; I26.99 Other pulmonary embolism without acute cor pulmonale; R53.83 Other fatigue; Z79.891 Long term (current) use of opiate analgesic; Z79.899 Other long term (current) drug therapy; Z92.21 Personal history of antineoplastic chemotherapy; Z87.891 Personal history of nicotine dependence; Z80.1 Family history of malignant neoplasm of trachea, bronchus and lung; Z80.6 Family history of leukemia; Z90.13 Acquired absence of bilateral breasts and nipples; Z80.3 Family history of malignant neoplasm of breast; Z80.7 Family history of other malignant neoplasms of lymphoid, hematopoietic and related tissues; Z79.01 Long term (current) use of anticoagulants

== ENCOUNTER → 2022-09-01 | Outpatient (CLI) | payer MEDICARE, MEDICAID ==
[~2022-09-01] MED LIST changes: +HYDR-4517 PO; +OXYC20TA2 PO; +SENN-186 PO; -SENN-80 PO
== END ==
LOC: M PAL 07:58
PROVIDERS: ATTEND Nurse Practitioner Family
DX: C50.912 Malignant neoplasm of unspecified site of left female breast (principal); C79.51 Secondary malignant neoplasm of bone; G89.3 Neoplasm related pain (acute) (chronic); M54.50 Low back pain, unspecified; E11.9 Type 2 diabetes mellitus without complications; D64.9 Anemia, unspecified; R53.83 Other fatigue; R11.2 Nausea with vomiting, unspecified; Z51.5 Encounter for palliative care; Z79.891 Long term (current) use of opiate analgesic; Z79.899 Other long term (current) drug therapy; Z92.21 Personal history of antineoplastic chemotherapy; Z87.891 Personal history of nicotine dependence; Z80.1 Family history of malignant neoplasm of trachea, bronchus and lung; Z80.6 Family history of leukemia; Z80.3 Family history of malignant neoplasm of breast; Z90.13 Acquired absence of bilateral breasts and nipples

== ENCOUNTER → 2022-11-29 | Outpatient (CLI) | payer MEDICARE, MEDICAID ==
[~2022-11-29] VITALS: Ht 175.3 cm; Wt 83.3 kg
[~2022-11-29] MED LIST changes: +AMPH1CAP15 PO; +DICY-61 PO; -DICY10CA13 PO
[2022-11-29 08:46] VITALS: BP 123/85; O2SAT 100
== END ==
LOC: M PAL 08:29
PROVIDERS: ATTEND Nurse Practitioner Adult Health
DX: C50.912 Malignant neoplasm of unspecified site of left female breast (principal); C79.51 Secondary malignant neoplasm of bone; G89.3 Neoplasm related pain (acute) (chronic); M54.50 Low back pain, unspecified; E11.9 Type 2 diabetes mellitus without complications; D64.9 Anemia, unspecified; R53.83 Other fatigue; R11.2 Nausea with vomiting, unspecified; Z51.5 Encounter for palliative care; Z79.891 Long term (current) use of opiate analgesic; Z79.899 Other long term (current) drug therapy; Z92.21 Personal history of antineoplastic chemotherapy; Z87.891 Personal history of nicotine dependence; Z80.1 Family history of malignant neoplasm of trachea, bronchus and lung; Z80.6 Family history of leukemia; Z80.3 Family history of malignant neoplasm of breast; Z90.13 Acquired absence of bilateral breasts and nipples

== ENCOUNTER → 2023-01-25 | Outpatient (CLI) | payer MEDICARE, MEDICAID ==
[~2023-01-25] VITALS: Ht 175.3 cm; Wt 82.0 kg
[~2023-01-25] MED LIST changes: +ONDA8TAB8 PO
[2023-01-25 09:53] VITALS: BP 119/86; TEMP 97.2; O2SAT 98
== END ==
LOC: M PAL 09:31
PROVIDERS: ATTEND Nurse Practitioner Adult Health
DX: C50.912 Malignant neoplasm of unspecified site of left female breast (principal); C79.51 Secondary malignant neoplasm of bone; G89.3 Neoplasm related pain (acute) (chronic); R11.2 Nausea with vomiting, unspecified; R53.83 Other fatigue; Z51.5 Encounter for palliative care; Z66 Do not resuscitate; Z79.891 Long term (current) use of opiate analgesic; Z79.85 Long-term (current) use of injectable non-insulin antidiabetic drugs; Z79.899 Other long term (current) drug therapy; Z80.1 Family history of malignant neoplasm of trachea, bronchus and lung; Z80.7 Family history of other malignant neoplasms of lymphoid, hematopoietic and related tissues; Z80.6 Family history of leukemia; Z87.891 Personal history of nicotine dependence; Z90.13 Acquired absence of bilateral breasts and nipples; Z90.79 Acquired absence of other genital organ(s); Z90.722 Acquired absence of ovaries, bilateral; Z92.21 Personal history of antineoplastic chemotherapy

== ENCOUNTER → 2023-02-23 | Outpatient (CLI) | payer MEDICARE, MEDICAID | LOC: M PAL 08:55 | PROVIDERS: ATTEND Nurse Practitioner Family | DX: C50.912 Malignant neoplasm of unspecified site of left female breast (principal); C79.51 Secondary malignant neoplasm of bone; G89.3 Neoplasm related pain (acute) (chronic); I50.9 Heart failure, unspecified; Z51.5 Encounter for palliative care; Z79.85 Long-term (current) use of injectable non-insulin antidiabetic drugs; Z79.891 Long term (current) use of opiate analgesic; Z79.899 Other long term (current) drug therapy; Z80.0 Family history of malignant neoplasm of digestive organs; Z80.6 Family history of leukemia; Z80.7 Family history of other malignant neoplasms of lymphoid, hematopoietic and related tissues; Z87.891 Personal history of nicotine dependence; Z90.13 Acquired absence of bilateral breasts and nipples; Z90.722 Acquired absence of ovaries, bilateral; Z90.79 Acquired absence of other genital organ(s) ==

== ENCOUNTER → 2023-04-12 | Outpatient (CLI) | payer MEDICARE, MEDICAID ==
[~2023-04-12] MED LIST changes: +FENT1PAT25 TD
== END ==
LOC: M WUC 11:39
PROVIDERS: ATTEND Student in an Organized Health Care Education/Training Program
DX: M25.551 Pain in right hip (principal); S20.211A Contusion of right front wall of thorax, initial encounter; Y93.9 Activity, unspecified; Y92.9 Unspecified place or not applicable
CPT/HCPCS: 71101; 73502; G0463

== ENCOUNTER → 2023-04-12 | Outpatient (CLI) | payer MEDICARE, MEDICAID ==
[~2023-04-12] VITALS: Ht 180.3 cm; Wt 87.9 kg
[2023-04-12 08:07] VITALS: BP 146/89; O2SAT 97
== END ==
LOC: M PAL 07:52
PROVIDERS: ATTEND Nurse Practitioner Adult Health
DX: C50.912 Malignant neoplasm of unspecified site of left female breast (principal); C79.51 Secondary malignant neoplasm of bone; G89.3 Neoplasm related pain (acute) (chronic); G47.01 Insomnia due to medical condition; R11.2 Nausea with vomiting, unspecified; R53.83 Other fatigue; Z51.5 Encounter for palliative care; Z79.891 Long term (current) use of opiate analgesic; Z79.899 Other long term (current) drug therapy; Z80.0 Family history of malignant neoplasm of digestive organs; Z80.6 Family history of leukemia; Z80.7 Family history of other malignant neoplasms of lymphoid, hematopoietic and related tissues; Z87.891 Personal history of nicotine dependence; Z90.13 Acquired absence of bilateral breasts and nipples; Z90.722 Acquired absence of ovaries, bilateral; Z90.79 Acquired absence of other genital organ(s)

== ENCOUNTER → 2023-05-11 | Outpatient (CLI) | payer MEDICARE, MEDICAID ==
[~2023-05-11] VITALS: Ht 175.3 cm; Wt 91.9 kg
[2023-05-11 08:47] VITALS: BP 126/88; O2SAT 99
== END ==
LOC: M PAL 08:39
PROVIDERS: ATTEND Nurse Practitioner Adult Health
DX: C50.912 Malignant neoplasm of unspecified site of left female breast (principal); C79.51 Secondary malignant neoplasm of bone; G89.3 Neoplasm related pain (acute) (chronic); G47.01 Insomnia due to medical condition; R11.2 Nausea with vomiting, unspecified; R53.83 Other fatigue; Z51.5 Encounter for palliative care; Z79.4 Long term (current) use of insulin; Z79.891 Long term (current) use of opiate analgesic; Z79.899 Other long term (current) drug therapy; Z80.0 Family history of malignant neoplasm of digestive organs; Z80.6 Family history of leukemia; Z80.7 Family history of other malignant neoplasms of lymphoid, hematopoietic and related tissues; Z87.891 Personal history of nicotine dependence; Z90.13 Acquired absence of bilateral breasts and nipples; Z90.722 Acquired absence of ovaries, bilateral; Z90.79 Acquired absence of other genital organ(s)

== ENCOUNTER → 2023-06-21 | Outpatient (CLI) | payer MEDICARE, MEDICAID ==
[~2023-06-21] VITALS: Ht 175.3 cm; Wt 95.0 kg
[~2023-06-21] MED LIST changes: +GABA-282 PO; +IBUP-1114 PO; +INSUHUMDS SC; +LANTINJ4 SC; +OXYC30TA PO
[2023-06-21 08:57] VITALS: BP 157/97; O2SAT 97
== END ==
LOC: M PAL 08:48
PROVIDERS: ATTEND Nurse Practitioner Adult Health
DX: C50.912 Malignant neoplasm of unspecified site of left female breast (principal); C79.51 Secondary malignant neoplasm of bone; G89.3 Neoplasm related pain (acute) (chronic); G47.01 Insomnia due to medical condition; R11.2 Nausea with vomiting, unspecified; R53.83 Other fatigue; Z51.5 Encounter for palliative care; Z80.0 Family history of malignant neoplasm of digestive organs; Z80.6 Family history of leukemia; Z80.7 Family history of other malignant neoplasms of lymphoid, hematopoietic and related tissues; Z87.891 Personal history of nicotine dependence; Z90.13 Acquired absence of bilateral breasts and nipples; Z90.722 Acquired absence of ovaries, bilateral; Z90.79 Acquired absence of other genital organ(s); Z79.1 Long term (current) use of non-steroidal anti-inflammatories (NSAID); Z79.891 Long term (current) use of opiate analgesic; Z79.4 Long term (current) use of insulin; Z79.899 Other long term (current) drug therapy

== ENCOUNTER → 2023-10-20 | Outpatient (CLI) | payer MEDICARE, MEDICAID ==
[~2023-10-20] VITALS: Ht 175.3 cm; Wt 96.1 kg
[~2023-10-20] MED LIST changes: +FENT1DIS14 TOP; +FENT75DI29 TD; +IBUP1TAB6 PO; +JARD1TAB PO; +MIRT-84 PO; +MIRT1TAB15 PO
[2023-10-20 09:47] VITALS: BP 145/101; O2SAT 98
[2023-10-20 10:40] VITALS: BP 156/105
== END ==
LOC: M PAL 09:34
PROVIDERS: ATTEND Nurse Practitioner Adult Health
DX: C50.912 Malignant neoplasm of unspecified site of left female breast (principal); C79.51 Secondary malignant neoplasm of bone; G89.3 Neoplasm related pain (acute) (chronic); G47.01 Insomnia due to medical condition; R11.2 Nausea with vomiting, unspecified; R53.83 Other fatigue; Z51.5 Encounter for palliative care; Z80.1 Family history of malignant neoplasm of trachea, bronchus and lung; Z80.6 Family history of leukemia; Z80.7 Family history of other malignant neoplasms of lymphoid, hematopoietic and related tissues; Z87.891 Personal history of nicotine dependence; Z90.13 Acquired absence of bilateral breasts and nipples; Z90.722 Acquired absence of ovaries, bilateral; Z90.79 Acquired absence of other genital organ(s); Z79.1 Long term (current) use of non-steroidal anti-inflammatories (NSAID); Z79.891 Long term (current) use of opiate analgesic; Z79.4 Long term (current) use of insulin; Z79.899 Other long term (current) drug therapy; Z92.21 Personal history of antineoplastic chemotherapy; Z92.3 Personal history of irradiation

== ENCOUNTER → 2023-12-28 | Outpatient (CLI) | payer OTHER, MEDICAID ==
[~2023-12-28] MED LIST changes: +CLONI1TA PO; +DOXY-440 PO; +FENT12DI8 TD; +IBUP200C25 PO; +ONDA-282 PO; +ONDA-284 PO; -ONDA4TAB6 PO; -ONDA8TAB8 PO; +ROSU20TA61 PO
[2023-12-28 09:28] VITALS: BP 158/95; O2SAT 95
== END ==
LOC: M PAL 08:22
PROVIDERS: ATTEND Nurse Practitioner Adult Health
DX: C50.912 Malignant neoplasm of unspecified site of left female breast (principal); C79.51 Secondary malignant neoplasm of bone; G89.3 Neoplasm related pain (acute) (chronic); M79.651 Pain in right thigh; R53.83 Other fatigue; F32.A Depression, unspecified; R23.2 Flushing; Z51.5 Encounter for palliative care; Z80.1 Family history of malignant neoplasm of trachea, bronchus and lung; Z80.6 Family history of leukemia; Z80.7 Family history of other malignant neoplasms of lymphoid, hematopoietic and related tissues; Z87.891 Personal history of nicotine dependence; Z90.13 Acquired absence of bilateral breasts and nipples; Z90.722 Acquired absence of ovaries, bilateral; Z90.79 Acquired absence of other genital organ(s); Z79.1 Long term (current) use of non-steroidal anti-inflammatories (NSAID); Z79.4 Long term (current) use of insulin; Z79.84 Long term (current) use of oral hypoglycemic drugs; Z79.890 Hormone replacement therapy; Z79.891 Long term (current) use of opiate analgesic; Z79.899 Other long term (current) drug therapy; Z92.21 Personal history of antineoplastic chemotherapy; Z92.3 Personal history of irradiation; Z96.698 Presence of other orthopedic joint implants

== ENCOUNTER → 2024-01-31 | Outpatient (CLI) | payer OTHER ==
[~2024-01-31] VITALS: Ht 175.3 cm; Wt 96.1 kg
[2024-01-31 08:10] VITALS: BP 164/97; O2SAT 97
== END ==
LOC: M PAL 08:03
PROVIDERS: ATTEND Nurse Practitioner Adult Health
DX: G89.3 Neoplasm related pain (acute) (chronic) (principal); C50.912 Malignant neoplasm of unspecified site of left female breast; C79.51 Secondary malignant neoplasm of bone; A69.20 Lyme disease, unspecified; M79.651 Pain in right thigh; R53.83 Other fatigue; R23.2 Flushing; F32.A Depression, unspecified; Z51.5 Encounter for palliative care; Z80.1 Family history of malignant neoplasm of trachea, bronchus and lung; Z80.6 Family history of leukemia; Z80.7 Family history of other malignant neoplasms of lymphoid, hematopoietic and related tissues; Z87.891 Personal history of nicotine dependence; Z90.13 Acquired absence of bilateral breasts and nipples; Z90.722 Acquired absence of ovaries, bilateral; Z90.79 Acquired absence of other genital organ(s); Z79.1 Long term (current) use of non-steroidal anti-inflammatories (NSAID); Z79.4 Long term (current) use of insulin; Z79.84 Long term (current) use of oral hypoglycemic drugs; Z79.890 Hormone replacement therapy; Z79.891 Long term (current) use of opiate analgesic; Z79.899 Other long term (current) drug therapy; Z92.21 Personal history of antineoplastic chemotherapy; Z92.3 Personal history of irradiation; Z96.698 Presence of other orthopedic joint implants

== ENCOUNTER → 2024-04-03 | Outpatient (CLI) | payer OTHER ==
[~2024-04-03] VITALS: Ht 175.3 cm; Wt 99.8 kg
[~2024-04-03] MED LIST changes: +GABA-1172 PO; -GABA-282 PO; +NEUR600T PO; +ONDA-84 PO; +OXYC-1 PO; -ROSU20TA61 PO; +ROSU20TA86 PO; +VICT18IN SC
[2024-04-03 08:06] VITALS: BP 130/82; O2SAT 99
== END ==
LOC: M PAL 07:39
PROVIDERS: ATTEND Nurse Practitioner Adult Health
DX: G89.3 Neoplasm related pain (acute) (chronic) (principal); C50.912 Malignant neoplasm of unspecified site of left female breast; C79.51 Secondary malignant neoplasm of bone; A69.20 Lyme disease, unspecified; M79.651 Pain in right thigh; M25.551 Pain in right hip; R53.83 Other fatigue; R23.2 Flushing; F32.A Depression, unspecified; Z51.5 Encounter for palliative care; Z66 Do not resuscitate; Z80.1 Family history of malignant neoplasm of trachea, bronchus and lung; Z80.6 Family history of leukemia; Z80.7 Family history of other malignant neoplasms of lymphoid, hematopoietic and related tissues; Z87.891 Personal history of nicotine dependence; Z90.13 Acquired absence of bilateral breasts and nipples; Z90.722 Acquired absence of ovaries, bilateral; Z90.79 Acquired absence of other genital organ(s); Z79.1 Long term (current) use of non-steroidal anti-inflammatories (NSAID); Z79.4 Long term (current) use of insulin; Z79.84 Long term (current) use of oral hypoglycemic drugs; Z79.890 Hormone replacement therapy; Z79.891 Long term (current) use of opiate analgesic; Z79.899 Other long term (current) drug therapy; Z92.21 Personal history of antineoplastic chemotherapy; Z92.3 Personal history of irradiation; Z96.698 Presence of other orthopedic joint implants

== ENCOUNTER → 2024-04-10 | Outpatient (CLI) | payer OTHER ==
[~2024-04-10] VITALS: Ht 175.3 cm; Wt 99.9 kg
[2024-04-10 08:04] VITALS: BP 125/94; O2SAT 97
== END ==
LOC: M PAL 07:44
PROVIDERS: ATTEND Nurse Practitioner Adult Health
DX: G89.3 Neoplasm related pain (acute) (chronic) (principal); C50.912 Malignant neoplasm of unspecified site of left female breast; C79.51 Secondary malignant neoplasm of bone; A69.20 Lyme disease, unspecified; M25.551 Pain in right hip; M79.651 Pain in right thigh; R53.83 Other fatigue; F32.A Depression, unspecified; Z51.5 Encounter for palliative care; Z66 Do not resuscitate; Z80.1 Family history of malignant neoplasm of trachea, bronchus and lung; Z80.6 Family history of leukemia; Z80.7 Family history of other malignant neoplasms of lymphoid, hematopoietic and related tissues; Z87.891 Personal history of nicotine dependence; Z90.13 Acquired absence of bilateral breasts and nipples; Z90.722 Acquired absence of ovaries, bilateral; Z90.79 Acquired absence of other genital organ(s); Z79.1 Long term (current) use of non-steroidal anti-inflammatories (NSAID); Z79.85 Long-term (current) use of injectable non-insulin antidiabetic drugs; Z79.891 Long term (current) use of opiate analgesic; Z79.899 Other long term (current) drug therapy; Z92.3 Personal history of irradiation

== ENCOUNTER → 2024-06-18 | Outpatient (CLI) | payer MEDICARE ==
[~2024-06-18] VITALS: Ht 172.7 cm; Wt 90.6 kg
[~2024-06-18] MED LIST changes: +LIDO4CRE12 TOP; +MAGICMW SSP; +SEMA1PEN2 SQ
[2024-06-18 16:10] VITALS: BP 187/112; O2SAT 98
== END ==
LOC: M PAL 15:23
PROVIDERS: ATTEND Family Medicine
DX: Z51.5 Encounter for palliative care (principal); C50.912 Malignant neoplasm of unspecified site of left female breast; C79.51 Secondary malignant neoplasm of bone; R52 Pain, unspecified; R11.0 Nausea; Z66 Do not resuscitate; Z79.1 Long term (current) use of non-steroidal anti-inflammatories (NSAID); Z79.899 Other long term (current) drug therapy; Z92.21 Personal history of antineoplastic chemotherapy

== ENCOUNTER → 2024-08-28 | Outpatient (CLI) | payer MEDICARE ==
[~2024-08-28] VITALS: Ht 175.3 cm; Wt 89.1 kg
[~2024-08-28] MED LIST changes: +LACT20EL PO; +MELO15TA28 PO; +TRAZ-252 PO
[2024-08-28 12:01] VITALS: BP 181/110; O2SAT 99
== END ==
LOC: M PAL 11:24
PROVIDERS: ATTEND Physician Assistant
DX: Z51.5 Encounter for palliative care (principal); C50.912 Malignant neoplasm of unspecified site of left female breast; C79.51 Secondary malignant neoplasm of bone; Z79.891 Long term (current) use of opiate analgesic; Z79.899 Other long term (current) drug therapy; K59.00 Constipation, unspecified

== ENCOUNTER → 2025-02-25 | Outpatient (CLI) | payer MEDICARE ==
[~2025-02-25] VITALS: Ht 175.3 cm; Wt 86.9 kg
[~2025-02-25] MED LIST changes: +ELIQ2.5T PO; -IBUP1TAB6 PO; -PREG50CA PO; +PREG50CA87 PO; +SFHIBU600 PO; +TRAZ-257 PO
[2025-02-25 09:46] VITALS: BP 145/85; O2SAT 98
== END ==
LOC: M PAL 09:20
PROVIDERS: ATTEND Physician Assistant
DX: Z51.5 Encounter for palliative care (principal); Z66 Do not resuscitate; C50.019 Malignant neoplasm of nipple and areola, unspecified female breast; C79.51 Secondary malignant neoplasm of bone; Z92.21 Personal history of antineoplastic chemotherapy; Z79.891 Long term (current) use of opiate analgesic; Z79.899 Other long term (current) drug therapy

== ENCOUNTER → 2025-02-25 | Outpatient (CLI) | payer MEDICARE | LOC: M ONCR 10:54 | PROVIDERS: ATTEND General Practice | DX: C79.51 Secondary malignant neoplasm of bone (principal); C50.912 Malignant neoplasm of unspecified site of left female breast; Z90.13 Acquired absence of bilateral breasts and nipples; Z90.722 Acquired absence of ovaries, bilateral; Z90.79 Acquired absence of other genital organ(s); Z80.1 Family history of malignant neoplasm of trachea, bronchus and lung; Z80.7 Family history of other malignant neoplasms of lymphoid, hematopoietic and related tissues; Z80.6 Family history of leukemia; Z87.891 Personal history of nicotine dependence; Z79.891 Long term (current) use of opiate analgesic; Z79.01 Long term (current) use of anticoagulants; Z79.85 Long-term (current) use of injectable non-insulin antidiabetic drugs; Z79.899 Other long term (current) drug therapy; Z92.21 Personal history of antineoplastic chemotherapy ==

== ENCOUNTER → 2025-03-04 | Outpatient (CLI) | payer MEDICARE ==
[~2025-03-04] MED LIST changes: +PROHANCE 279.3MG/ML 15ML VIAL As Ordered ONE; +PROHANCE 279.3MG/ML 5ML VIAL As Ordered ONE
== END ==
LOC: M RAD 06:50
PROVIDERS: ATTEND General Practice
DX: C79.51 Secondary malignant neoplasm of bone (principal)
CPT/HCPCS: 70553; A9576

== ENCOUNTER 2025-03-13 10:45 | Outpatient (RCR) | payer MEDICARE ==
[~2025-03-13 10:45] MED LIST changes: -PROHANCE 279.3MG/ML 15ML VIAL As Ordered ONE; -PROHANCE 279.3MG/ML 5ML VIAL As Ordered ONE
[2025-03-13] MEDS ORDERED: DICL100G10 TOP (11:21)
== END 2025-03-21 ==
LOC: M ONCR 10:45
PROVIDERS: ATTEND General Practice
DX: Z51.0 Encounter for antineoplastic radiation therapy (principal); C72.50 Malignant neoplasm of unspecified cranial nerve

== ENCOUNTER 2025-03-24 09:11 | Outpatient (RCR) | payer MEDICARE ==
[~2025-03-24 09:11] MED LIST changes: +DICL100G10 TOP
[2025-03-31] MEDS ORDERED: DULO30CA9 PO (12:05)
[2025-03-31] MEDS ORDERED: FENT100D25 TOP (12:05)
[2025-03-31] MEDS ORDERED: CLONI1TA PO (12:05)
[2025-03-31] MEDS ORDERED: ELIQ5TAB PO (13:06)
[2025-03-31] MEDS ORDERED: OXYC30TA PO (13:06)
[2025-03-31] MEDS ORDERED: FENT1PAT25 TOP (13:08)
[2025-03-31] MEDS ORDERED: LANTINJ4 SC (16:27)
[2025-04-08] MEDS ORDERED: DULO1CAP6 PO (15:47)
== END 2025-04-20 ==
LOC: M ONCR 09:11
PROVIDERS: ATTEND General Practice
DX: Z51.0 Encounter for antineoplastic radiation therapy (principal); C72.50 Malignant neoplasm of unspecified cranial nerve; Z53.8 Procedure and treatment not carried out for other reasons

== ENCOUNTER 2025-03-31 11:59 | Emergency (ER) | payer MEDICARE ==
[~2025-03-31] VITALS: Ht 175.3 cm; Wt 86.0 kg
[~2025-03-31 11:59] MED LIST changes: -DULO30CA9 PO; -ELIQ5TAB PO; -FENT100D25 TOP; -FENT1PAT25 TOP
[2025-03-31] MEDS ORDERED: DULO30CA9 PO (12:05)
[2025-03-31] MEDS ORDERED: FENT100D25 TOP (12:05)
[2025-03-31] MEDS ORDERED: CLONI1TA PO (12:05)
[2025-03-31] MEDS ORDERED: OXYC30TA PO (13:06)
[2025-03-31] MEDS ORDERED: ELIQ5TAB PO (13:06)
[2025-03-31] MEDS ORDERED: FENT1PAT25 TOP (13:08)
[2025-03-31] MEDS ORDERED: HOME MED LIST COMPLETE! XX SCH (13:10)
[2025-03-31] MEDS: NS (Normal Saline) 0.9% 1,000 ML IV ONE (13:18)
[2025-03-31 13:38] LABS: VENOUS BASE EXCESS -0.7 (-2.0-2.0); VENOUS HCO3 25.3 MMOL/L (23.0-27.0); VENOUS O2 SATURATION 78.3 % (60.0-80.0); VENOUS PARTIAL PRESSURE CO2 46.5 mmHg (38.0-50.0); VENOUS PARTIAL PRESSURE O2 42.8 mmHg (30.0-50.0); VENOUS PH 7.353 UNITS (7.330-7.430); VENOUS STANDARD HCO3 23.4 MMOL/L; VENOUS TOTAL CO2 26.7 MMOL/L (24.0-28.0)
[2025-03-31 13:41] LABS: KETONE, URINE AUTO RFX TRACE mg/dL (NEGATIVE); LEUKOCYTE ESTERASE UR AUTO RFX NEGATIVE (NEGATIVE); NITRITE, URINE AUTO RFX NEGATIVE (NEGATIVE); RBC, URINE AUTO RFX 0 /HPF (0-3); SQUAM EPITHELIAL CELL UR AURFX 0 /HPF (0-6); WBC, URINE AUTO RFX 1 /HPF (0-3)
[2025-03-31 13:43] LABS: BASO # 0.0 10^3/uL (0.0-0.2); BASO % 0.3 % (0.0-1.0); EOS # 0.1 10^3/uL (0.0-0.5); EOS % 0.9 % (0.0-3.0); LYMPH # 1.7 10^3/uL (1.5-5.0); LYMPH % 19.0 % (24.0-44.0); MONO # 0.3 10^3/uL (0.0-0.8); MONO % 3.6 % (2.0-8.0); NEUTROPHILS # 6.9 10^3/uL (1.5-8.5); NEUTROPHILS % 75.1 % (36.0-66.0); PLATELET COUNT, AUTOMATED 263 10^3/uL (150-450)
[2025-03-31 14:01] LABS: ESTIMATED AVERAGE GLUCOSE 260.0 MG/DL (60-110)
[2025-03-31 14:09] LABS: OSMOLALITY SERUM 306 MOSM/KG (275-295)
[2025-03-31 14:15] LABS: ACETONE/KETONE 0.16 MMOL/L (0.02-0.27)
[2025-03-31 14:16] LABS: ALT/SGPT 29 U/L (7.0-40); AST/SGOT 14 U/L (<34)
[2025-03-31] MEDS ORDERED: ISOVUE-370 76% 100 ML VIAL As Ordered ONE (14:17)
[2025-03-31 14:36] LABS: CALCIUM LEVEL 8.4 MG/DL (8.5-10.1); CARBON DIOXIDE LEVEL 26 MMOL/L (20-31); CHLORIDE LEVEL 102 MMOL/L (98-107); CREATININE FOR GFR 0.51 MG/DL (0.55-1.30); GLOMERULAR FILTRATION RATE > 90.0 (>51); POTASSIUM SERUM 4.7 MMOL/L (3.5-5.1); SODIUM LEVEL 137 MMOL/L (136-145)
[2025-03-31] MEDS ORDERED: diphenhydrAMINE 50 MG/ML VIAL As Ordered ONE (14:41)
[2025-03-31 14:45] VITALS: TEMP 97.6
[2025-03-31] MEDS: diphenhydrAMINE 50 MG/ML VIAL IV ONE (14:48)
[2025-03-31] MEDS: ONDANSETRON 4MG/2ML VIAL IV ONE (15:11)
[2025-03-31] MEDS: MORPHINE 4 MG/ML 1 ML VIAL IV ONE (15:11)
[2025-03-31 16:09] LABS: CK-MB VALUE MASS < 1.0 NG/ML (<3.6)
[2025-03-31 16:10] LABS: CPK CREATINE PHOSPHOKINASE 33 U/L (34-145)
[2025-03-31 16:15] VITALS: O2SAT 95
[2025-03-31 16:16] VITALS: BP 131/87
[2025-03-31] MEDS ORDERED: LANTINJ4 SC (16:27)
[2025-03-31] MEDS: HEPARIN LOCK FLUSH 100 UNITS/ML 3 ML SYRINGE IV SCH (17:12)
[2025-03-31] MEDS: SODIUM CHLORIDE 0.9% INJ 10 ML SYR IV SCH (17:12)
[2025-04-01] MEDS ORDERED: SODIUM CHLORIDE 0.9% INJ 10 ML SYR IV SCH (09:00)
[2025-04-01] MEDS ORDERED: HEPARIN LOCK FLUSH 100 UNITS/ML 3 ML SYRINGE IV SCH (09:00)
== END 2025-03-31 17:12 | disposition home or self-care (01) ==
LOC: M ED 11:59
DX: K52.9 Noninfective gastroenteritis and colitis, unspecified (principal); F41.9 Anxiety disorder, unspecified; E11.65 Type 2 diabetes mellitus with hyperglycemia; C50.919 Malignant neoplasm of unspecified site of unspecified female breast; R79.9 Abnormal finding of blood chemistry, unspecified; K76.0 Fatty (change of) liver, not elsewhere classified; I70.0 Atherosclerosis of aorta; K44.9 Diaphragmatic hernia without obstruction or gangrene; Z87.891 Personal history of nicotine dependence; Z91.041 Radiographic dye allergy status; Z88.8 Allergy status to other drugs, medicaments and biological substances; Z79.01 Long term (current) use of anticoagulants; Z79.899 Other long term (current) drug therapy; Z79.4 Long term (current) use of insulin
CPT/HCPCS: 70450; 74177; 80048; 80053; 80076; 81001; 82010; 82550; 82553; 82803; 83036; 83690; 83930; 84484; 85025; 93005; 93041; 94760; 96361; 96374; 96375; 99285; G0463; J1200; J1642; J2405; J2919; Q9967

== ENCOUNTER → 2025-03-31 | Outpatient (CLI) | payer MEDICARE ==
[~2025-03-31] MED LIST changes: +DULO30CA9 PO; +ELIQ5TAB PO; +FENT100D25 TOP; +FENT1PAT25 TOP
[2025-03-31 11:31] VITALS: BP 154/101; O2SAT 97
== END ==
LOC: M PAL 10:45
PROVIDERS: ATTEND Physician Assistant
DX: Z51.5 Encounter for palliative care (principal); Z66 Do not resuscitate; C50.412 Malignant neoplasm of upper-outer quadrant of left female breast; C79.51 Secondary malignant neoplasm of bone; Z92.21 Personal history of antineoplastic chemotherapy; Z79.891 Long term (current) use of opiate analgesic; Z79.899 Other long term (current) drug therapy

== ENCOUNTER → 2025-04-07 | Outpatient (CLI) | payer MEDICARE ==
[~2025-04-07] MED LIST changes: +DULO1CAP6 PO; +DULO30CA9 PO; +ELIQ5TAB PO; +FENT100D25 TOP; +FENT1PAT25 TOP
== END ==
LOC: M PAL 11:03
PROVIDERS: ATTEND Physician Assistant
DX: Z51.5 Encounter for palliative care (principal); Z66 Do not resuscitate; C50.912 Malignant neoplasm of unspecified site of left female breast; C79.51 Secondary malignant neoplasm of bone; Z92.21 Personal history of antineoplastic chemotherapy; Z79.891 Long term (current) use of opiate analgesic; Z91.041 Radiographic dye allergy status; Z88.6 Allergy status to analgesic agent; Z79.899 Other long term (current) drug therapy
CPT/HCPCS: G0463 ×2

== ENCOUNTER → 2025-04-07 | Outpatient (CLI) | payer MEDICARE | LOC: M ONCR 10:59 | PROVIDERS: ATTEND General Practice | DX: C79.51 Secondary malignant neoplasm of bone (principal); Z92.21 Personal history of antineoplastic chemotherapy ==